=== PATIENT | female | born 1970 | race Caucasian/White ===

== ENCOUNTER 2016-06-24 21:03 | Emergency (ER) | payer OTHER ==
[2016-06-24 21:24] LABS: BASO % 0.5 % (0.1-1.2); EOS # 0.3 10_X3_uL (0.0-0.4); GRAN # 4.8 10_X3_uL (1.6-6.1); GRAN % 54.5 % (34.0-71.1); HEMOGLOBIN 13.1 g/dL (11.2-15.7); LYMPH % 34.4 % (19.3-51.7); MEAN CORPUSCULAR HEMOGLOBIN 28.4 pg (27.0-33.0); MEAN CORPUSCULAR HGB CONC 34.5 g/dL (32.0-36.0); MEAN CORPUSCULAR VOLUME 82.4 fL (79-95); MEAN PLATELET VOLUME 10.8 fl (7.5-11.5); MONO # 0.7 10_X3_uL (0.2-0.9); MONO % 7.6 % (4.7-12.5); PLATELET COUNT 266 x10_3/uL (182-369); RED BLOOD COUNT 4.61 x10_6/uL (3.9-5.2); RED CELL DISTRIBUTION WIDTH 15.9 % (11.7-14.4); WHITE BLOOD COUNT 8.8 x10_3/uL (4.0-10.0)
[2016-06-24 21:42] LABS: BLOOD UREA NITROGEN 8 mg/dL (7-18); CALCIUM 9.1 mg/dL (8.7-10.7); CARBON DIOXIDE 21 mmol/L (21-32); CREATINE KINASE 22 U/L (21-215); CREATININE 0.5 mg/dL (0.6-1.3); GLUCOSE,RANDOM 368 mg/dL (70-99); SODIUM 132 mmol/L (136-145)
[2016-06-24 21:52] LABS: URINE BILIRUBIN NEGATIVE (NEGATIVE); URINE BLOOD TRACE (NEGATIVE); URINE KETONE NEGATIVE (NEGATIVE); URINE LEUKOCYTE ESTERASE NEGATIVE (NEGATIVE); URINE NITRATE NEGATIVE (NEGATIVE); URINE PROTEIN NEGATIVE (NEGATIVE); UROBILINOGEN NORMAL mg/dL (<1.0)
[2016-06-24 21:58] LABS: URINE GLUCOSE (UA) 1000 mg/dL (NORMAL)
[2016-06-24 21:59] LABS: URINE BACTERIA TRACE (NONE SEEN)
== END 2016-06-24 23:30 | disposition home or self-care (01) ==
LOC: ER 21:03
PROVIDERS: Emergency Medicine
DX: R07.2 Precordial pain (principal); M54.5 Low back pain; E11.40 Type 2 diabetes mellitus with diabetic neuropathy, unspecified; J44.9 Chronic obstructive pulmonary disease, unspecified; Z90.49 Acquired absence of other specified parts of digestive tract; F17.210 Nicotine dependence, cigarettes, uncomplicated; Z79.4 Long term (current) use of insulin; Z79.899 Other long term (current) drug therapy
CPT/HCPCS: 36415; 71010; 80048; 81001; 82550; 82553; 83690; 85025; 85379; 93005; 96374; 99070; 99285-25; J7040

== ENCOUNTER 2016-07-03 17:56 | Emergency (ER) | payer OTHER | END 2016-07-03 22:00 | disposition home or self-care (01) | LOC: ER 17:56 | DX: M54.40 Lumbago with sciatica, unspecified side (principal); K64.4 Residual hemorrhoidal skin tags; E11.9 Type 2 diabetes mellitus without complications; J44.9 Chronic obstructive pulmonary disease, unspecified; Z90.710 Acquired absence of both cervix and uterus; F17.210 Nicotine dependence, cigarettes, uncomplicated; Z79.4 Long term (current) use of insulin | CPT/HCPCS: 96372; 99282-25 ==

== ENCOUNTER 2016-08-08 20:59 | Emergency (ER) | payer OTHER ==
[2016-08-08 22:06] LABS: URINE BACTERIA 2+ (NONE SEEN); URINE BILIRUBIN NEGATIVE (NEGATIVE); URINE BLOOD TRACE (NEGATIVE); URINE GLUCOSE (UA) 1000 mg/dL (NORMAL); URINE KETONE NEGATIVE (NEGATIVE); URINE LEUKOCYTE ESTERASE 2+ (NEGATIVE); URINE NITRATE POSITIVE (NEGATIVE); URINE PROTEIN 1+ (NEGATIVE); URINE RBC 0-5 /[HPF] (0-2); URINE SQUAMOUS EPITHELIAL CELL 0-10 /[HPF] (NONE SEEN); URINE WBC >15 /[HPF] (0-5); UROBILINOGEN NORMAL mg/dL (<1.0)
[2016-08-08 22:11] LABS: BASO % 0.5 % (0.1-1.2); EOS # 0.2 10_X3_uL (0.0-0.4); EOS % 2.7 % (0.7-5.8); GRAN # 4.4 10_X3_uL (1.6-6.1); GRAN % 51.3 % (34.0-71.1); HEMATOCRIT 37.4 % (34-45); HEMOGLOBIN 12.9 g/dL (11.2-15.7); LYMPH # 3.2 10_X3_uL (1.2-3.7); MEAN CORPUSCULAR HEMOGLOBIN 28.7 pg (27.0-33.0); MEAN CORPUSCULAR HGB CONC 34.5 g/dL (32.0-36.0); MEAN CORPUSCULAR VOLUME 83.3 fL (79-95); MEAN PLATELET VOLUME 10.7 fl (7.5-11.5); MONO # 0.7 10_X3_uL (0.2-0.9); MONO % 8.5 % (4.7-12.5); PLATELET COUNT 292 x10_3/uL (182-369); RED BLOOD COUNT 4.49 x10_6/uL (3.9-5.2); RED CELL DISTRIBUTION WIDTH 14.5 % (11.7-14.4); WHITE BLOOD COUNT 8.5 x10_3/uL (4.0-10.0)
== END 2016-08-08 23:14 | disposition home or self-care (01) ==
LOC: ER 20:59
PROVIDERS: General Practice
DX: N39.0 Urinary tract infection, site not specified (principal); N83.209 Unspecified ovarian cyst, unspecified side; M54.6 Pain in thoracic spine; M51.9 Unspecified thoracic, thoracolumbar and lumbosacral intervertebral disc disorder; E11.9 Type 2 diabetes mellitus without complications; R00.2 Palpitations; F17.210 Nicotine dependence, cigarettes, uncomplicated; Z79.4 Long term (current) use of insulin; Z79.899 Other long term (current) drug therapy
CPT/HCPCS: 36415; 72128; 72131; 81001; 81025; 85025; 87086; 87186; 99070; 99283-25

== ENCOUNTER 2016-10-01 22:41 | Observation (INO) | payer OTHER ==
[~2016-10-01] VITALS: Ht 160 cm; Wt 85.0 kg
[2016-10-01 23:12] LABS: BASO % 0.5 % (0.1-1.2); EOS # 0.2 10_X3_uL (0.0-0.4); EOS % 2.6 % (0.7-5.8); GRAN # 3.6 10_X3_uL (1.6-6.1); GRAN % 46.8 % (34.0-71.1); HEMATOCRIT 35.5 % (34-45); HEMOGLOBIN 12.4 g/dL (11.2-15.7); LYMPH # 3.3 10_X3_uL (1.2-3.7); LYMPH % 42.5 % (19.3-51.7); MEAN CORPUSCULAR HEMOGLOBIN 28.2 pg (27.0-33.0); MEAN CORPUSCULAR HGB CONC 34.9 g/dL (32.0-36.0); MEAN CORPUSCULAR VOLUME 80.9 fL (79-95); MEAN PLATELET VOLUME 10.9 fl (7.5-11.5); MONO # 0.6 10_X3_uL (0.2-0.9); MONO % 7.6 % (4.7-12.5); PLATELET COUNT 269 x10_3/uL (182-369); RED BLOOD COUNT 4.39 x10_6/uL (3.9-5.2); RED CELL DISTRIBUTION WIDTH 14.6 % (11.7-14.4); WHITE BLOOD COUNT 7.7 x10_3/uL (4.0-10.0)
[2016-10-01 23:31] LABS: ALKALINE PHOSPHATASE 82 U/L (50-136); ALT/SGPT 25 U/L (3.5-33.9); AST/SGOT 10 U/L (7.04-26.96); BLOOD UREA NITROGEN 11 mg/dL (7-18); CALCIUM 9.1 mg/dL (8.7-10.7); CARBON DIOXIDE 22 mmol/L (21-32); CREATININE 0.7 mg/dL (0.6-1.3); SODIUM 131 mmol/L (136-145); TOTAL PROTEIN 6.7 gm/dL (6.4-8.2)
[2016-10-01 23:43] LABS: BILIRUBIN,TOTAL < 0.15 mg/dL (0.0-1.0); GLUCOSE,RANDOM 474 mg/dL (70-99)
[2016-10-02 00:59] LABS: CKMB < 1.0 ng/ml (0.0-5.0); TROP-I < 0.30 NG/ML (0.00-0.30)
[2016-10-02 01:17] LABS: PARTIAL THROMBOPLASTIN TIME 23.3 SECONDS (21.8-28.4); PROTHROMBIN TIME (PATIENT) 9.6 SECONDS (9.6-10.8)
[2016-10-02 08:00] LABS: ALBUMIN 3.5 gm/dL (3.4-5.0); ALKALINE PHOSPHATASE 70 U/L (50-136); BLOOD UREA NITROGEN 10 mg/dL (7-18); CALCIUM 8.3 mg/dL (8.7-10.7); CARBON DIOXIDE 22 mmol/L (21-32); CREATININE < 0.5 mg/dL (0.6-1.3); GLUCOSE,RANDOM 309 mg/dL (70-99); POTASSIUM 4.1 mmol/L (3.5-5.1); SODIUM 132 mmol/L (136-145)
[2016-10-02 08:12] LABS: ALT/SGPT 22 U/L (3.5-33.9); AST/SGOT 6 U/L (7.04-26.96)
[2016-10-02 08:16] LABS: BILIRUBIN,TOTAL < 0.15 mg/dL (0.0-1.0)
[2016-10-02 11:24] LABS: URINE BILIRUBIN NEGATIVE (NEGATIVE); URINE BLOOD NEGATIVE (NEGATIVE); URINE KETONE NEGATIVE (NEGATIVE); URINE LEUKOCYTE ESTERASE 1+ (NEGATIVE); URINE NITRATE POSITIVE (NEGATIVE); URINE PROTEIN NEGATIVE (NEGATIVE); UROBILINOGEN NORMAL mg/dL (<1.0)
[2016-10-02 11:57] LABS: URINE GLUCOSE (UA) 1000 mg/dL (NORMAL)
[2016-10-02 11:58] LABS: URINE BACTERIA 3+ (NONE SEEN); URINE RBC 0-5 /[HPF] (0-2); URINE SQUAMOUS EPITHELIAL CELL 0-10 /[HPF] (NONE SEEN)
[2016-10-02 19:14] LABS: CKMB < 1.0 ng/ml (0.0-5.0); TROP-I < 0.30 NG/ML (0.00-0.30)
== END 2016-10-02 20:06 | disposition home or self-care (01) ==
LOC: ER 22:41 → MS 10-02 00:04
PROVIDERS: General Practice; ADMIT Family Medicine
DX: R07.89 Other chest pain (principal); J44.9 Chronic obstructive pulmonary disease, unspecified; E11.65 Type 2 diabetes mellitus with hyperglycemia; E78.5 Hyperlipidemia, unspecified; N39.0 Urinary tract infection, site not specified; R51 Headache; R11.0 Nausea; Z82.49 Family history of ischemic heart disease and other diseases of the circulatory system; F17.210 Nicotine dependence, cigarettes, uncomplicated; Z79.899 Other long term (current) drug therapy; Z79.84 Long term (current) use of oral hypoglycemic drugs
CPT/HCPCS: 36415; 71010; 80053; 81001; 82009; 82550; 82553; 82962; 83880; 84484; 84703; 85025; 85379; 85610; 85730; 87040; 87086; 87186; 93005; 93041; 96372; 96374; 99070; 99285-25; G0378

== ENCOUNTER 2016-10-04 15:00 | Emergency (ER) | payer OTHER ==
[2016-10-04 15:29] LABS: URINE BILIRUBIN NEGATIVE (NEGATIVE); URINE BLOOD NEGATIVE (NEGATIVE); URINE KETONE NEGATIVE (NEGATIVE); URINE LEUKOCYTE ESTERASE NEGATIVE (NEGATIVE); URINE NITRATE NEGATIVE (NEGATIVE); URINE PROTEIN NEGATIVE (NEGATIVE); UROBILINOGEN NORMAL mg/dL (<1.0)
[2016-10-04 15:30] LABS: URINE GLUCOSE (UA) 1000 mg/dL (NORMAL)
== END 2016-10-04 17:00 | disposition home or self-care (01) ==
LOC: ER 15:00
PROVIDERS: Emergency Medicine
DX: M54.5 Low back pain (principal); E11.9 Type 2 diabetes mellitus without complications; Z90.49 Acquired absence of other specified parts of digestive tract; Z98.890 Other specified postprocedural states; F17.210 Nicotine dependence, cigarettes, uncomplicated; Z79.4 Long term (current) use of insulin; Z79.899 Other long term (current) drug therapy
CPT/HCPCS: 81003; 96372; 99283-25